=== PATIENT | female | born 1980 | race Caucasian/White ===

== ENCOUNTER 2017-10-23 18:23 | Emergency (ER) | payer MEDICAID ==
[~2017-10-23] VITALS: Ht 157.5 cm; Wt 54.0 kg
[2017-10-23 21:26] VITALS: BP 137/82
== END 2017-10-23 21:29 | disposition home or self-care (01) ==
LOC: ER 18:23
DX: J20.9 Acute bronchitis, unspecified (principal); R91.8 Other nonspecific abnormal finding of lung field; Z88.0 Allergy status to penicillin; Z90.49 Acquired absence of other specified parts of digestive tract
CPT/HCPCS: 71046; 71250; 93005

== ENCOUNTER 2021-06-28 08:15 | Emergency (ER) | payer MEDICAID ==
[~2021-06-28] VITALS: Ht 157.5 cm; Wt 72.6 kg
[2021-06-28 09:31] VITALS: BP 160/100
[2021-06-28 09:49] LABS: Basophils # (auto) 0.2 10 ^3/uL (0-0.2); Basophils % (auto) 2.8 % (0.0-2.0); Eosinophils # (auto) 0.1 10 ^3/uL (0-0.8); Eosinophils % (auto) 0.9 % (0.0-7.0); Hematocrit 43.2 % (36.0-46.0); Hemoglobin 14.5 g/dL (12.2-16.2); Lymphocytes # (auto) 1.2 10 ^3/uL (0.4-5.4); Lymphocytes % (auto) 18.6 % (10.0-50.0); Mean Corpuscular Hemoglobin 31.1 pg (28.0-32.0); Mean Corpuscular Hgb Conc. 33.6 g/dL (32.0-36.0); Mean Corpuscular Volume 92.7 fL (80.0-100.0); Monocytes # (auto) 0.3 10 ^3/uL (0-1.3); Monocytes % (auto) 4.1 % (0.0-12.0); Neutrophils # (auto) 4.8 10 ^3/uL (1.6-8.6); Neutrophils % (auto) 73.6 % (37.0-80.0); Nucleated Red Blood Cells % 0.1 %; Red Blood Cells 4.66 10^6/uL (4.0-5.20); Red Cell Distribution Width 12.9 % (11.8-14.3); White Blood Cell 6.5 10^3/uL (4.4-10.8)
[2021-06-28 10:05] LABS: Albumin 3.3 g/dL (3.4-5.0); Calcium 8.4 mg/dL (8.5-10.1); Potassium 3.6 mmol/L (3.5-5.1)
[2021-06-28 10:07] LABS: BUN/Creatinine Ratio 17.1
[2021-06-28 10:12] LABS: Bilirubin, Total 0.4 mg/dL (0.2-1.0); Total Protein 6.8 g/dL (6.4-8.2)
[2021-06-28] MEDS ORDERED: CYCL-837 PO (10:27)
[2021-06-28] MEDS ORDERED: IBUP800T27 PO (10:27)
[2021-06-28] MEDS ORDERED: ACETAMINOPHEN 325 MG TAB PO ONE (10:45)
== END 2021-06-28 10:54 | disposition home or self-care (01) ==
LOC: ER 08:15
DX: S62.605A Fracture of unspecified phalanx of left ring finger, initial encounter for closed fracture (principal); S20.219A Contusion of unspecified front wall of thorax, initial encounter; S16.1XXA Strain of muscle, fascia and tendon at neck level, initial encounter; S00.83XA Contusion of other part of head, initial encounter; F12.10 Cannabis abuse, uncomplicated; Z90.89 Acquired absence of other organs; Z88.0 Allergy status to penicillin; Y04.8XXA Assault by other bodily force, initial encounter; Y93.89 Activity, other specified; Y92.89 Other specified places as the place of occurrence of the external cause; Y99.8 Other external cause status
CPT/HCPCS: 36415; 70450; 70486; 71250; 72125; 73130; 80053; 84484; 85025; 93005

== ENCOUNTER 2022-12-05 12:41 | Emergency (ER) | payer MEDICAID ==
[~2022-12-05] VITALS: Ht 157.5 cm; Wt 87.0 kg
[~2022-12-05 12:41] MED LIST: CYCL-837 PO; IBUP-1456 PO
[2022-12-05 14:54] VITALS: BP 121/79; PULSE 78; RESP 18; TEMP 98.1; O2SAT 100
== END 2022-12-05 15:13 | disposition home or self-care (01) ==
LOC: ER 12:41
DX: M23.91 Unspecified internal derangement of right knee (principal)
CPT/HCPCS: 73562